=== PATIENT | female | born 1960 | race Two or more races ===

== ENCOUNTER 2024-06-06 10:34 | Outpatient (RCR) | payer BC, SELFPAY ==
--- NOTE | 2024-06-06 11:15 | CTCFLWUP_ITS ---
[facility] [address] [place], [place] [address] FOLLOW-UP NOTE Date: 06/06/2024 MR#: [id number] Name: DOLORES VANCE : 1960 Dx: C73 Malignant neoplasm of thyroid gland Identification. Patient with history of stage II [id number] papillary thyroid carcinoma. Status post total thyroidectomy and right modified radical neck dissection 1.2 cm primary 12 positive nodes [facility] Dr Lomeli 03/30/2023. Postop radioiodine and subsequent total body iodine no mets according to patient. Seeing security installation sales technician who is keeping her at euthyroid level. Synthroid 137 mcg according the patien t Ultrasound of neck 01/21/2024 showed no cystic or solid mass. Most recent labs 05/17/2024 shows calcium at normal level of 8.2 thyroglobulin antibody less than 0.9 .. Patient being followed by security installation sales technician who is keeping her at euthyroid level. Would like to see her in 6 months with thyroglobulin and thyroglobulin antibody. Electronically signed by: Mayur Dodson M.D. 06/06/2024 11:13 AM
== END 2024-06-23 23:59 | disposition home or self-care (01) ==
LOC: SCTC 10:34
PROVIDERS: PCP Internal Medicine; Referring Provider Internal Medicine; Visit Provider Radiology Therapeutic Radiology
DX: C73 Malignant neoplasm of thyroid gland (principal); E89.0 Postprocedural hypothyroidism; Z79.890 Hormone replacement therapy
CPT/HCPCS: 99213; G0463

== ENCOUNTER 2024-12-20 10:53 | Outpatient (RCR) | payer BC, SELFPAY ==
--- NOTE | 2024-12-20 12:21 | CTCFLWUP_ITS ---
[facility] [address] [place], [place] [address] FOLLOW-UP NOTE Date: 12/20/2024 MR#: [id number] Name: DOLORES VANCE : 1960 Dx: C73 Malignant neoplasm of thyroid gland Identification. Patient with history of stage II [id number] papillary thyroid carcinoma. Underwent total thyroidectomy right modified radical neck section 1.2 cm primary 12 positive node [facility] Dr Lomeli 03/30/2023. Postop radioiodine and subsequent told by the iodine scan no mets according to patient. Feeling well. No sign of recurrence in her neck. Seeing fall internship keeping her euthyroid level Synthroid 137 mcg according to patient. Ultrasound January 21, 2024 showed no cystic or solid mass. 12/17/2024 thyroglobulin 6.2 (1.3 -31.8) Repeat ultrasound before next visit and we will also check thyroglobulin thyroglobulin antibody. Electronically signed by: Mayur Dodson M.D. 12/20/2024 12:19 PM
== END 2024-12-22 23:59 | disposition home or self-care (01) ==
LOC: SCTC 10:53
PROVIDERS: PCP Internal Medicine; Referring Provider Family Medicine; Visit Provider Radiology Therapeutic Radiology
DX: C73 Malignant neoplasm of thyroid gland (principal); E89.0 Postprocedural hypothyroidism; Z92.3 Personal history of irradiation; Z79.890 Hormone replacement therapy
CPT/HCPCS: 99213; G0463

== ENCOUNTER → 2025-01-10 | Outpatient (CLI) | payer BC, SELFPAY ==
--- NOTE | 2025-01-10 13:30 | XR_ITS ---
Examination: Thyroid sonography complete TECHNIQUE: Grayscale sonographic images thyroid bed Date and time: January 10, 2025 1347 hours INDICATIONS: Diagnosis malignant neoplasm of thyroid gland, thyroidectomy 2 years ago, palpable mass in the right neck one week FINDINGS: Absent thyroid tissue Right neck lymph nodes 10 x 9 mm, 12 x 11 mm, 11 x 12 mm IMPRESSION: Right cervical lymphadenopathy as above, consider correlation with CT soft tissue neck post intravenous contrast follow-up
== END | disposition home or self-care (01) ==
PROVIDERS: PCP Internal Medicine; Referring Provider Radiology Therapeutic Radiology; Visit Provider Radiology Therapeutic Radiology
DX: R59.0 Localized enlarged lymph nodes (principal); C73 Malignant neoplasm of thyroid gland
CPT/HCPCS: 76536

== ENCOUNTER 2025-03-21 10:21 | Outpatient (RCR) | payer BC, SELFPAY ==
--- NOTE | 2025-03-21 11:35 | CTCFLWUP_ITS ---
[facility] [address] [place], [place] [address] FOLLOW-UP NOTE Date: 03/21/2025 MR#: [id number] Name: DOLORES VANCE : 1960 Dx: C73 Malignant neoplasm of thyroid gland Identification. Patient with history of stage II [id number] papillary thyroid carcinoma. Underwent total ectomy right modified radical neck dissection 1.2 cm primary 12 positive nodes [facility] Dr Lomeli 03/30/2023 Underwent postop radioiodine with subsequent told by iodine scan which showed no mets disease. Patient is kept Euthyroid with Synthroid 137 mcg by collector of aquarium specimens. Ultrasound 01/21/2024 revealed no cystic or solid mass. Repeat ultrasound 01/10/2025 revealed right cervical lymphadenopathy. Thyroglobulin also has been rising 7.1 March 08, 2025 up from 6.2 December 20, 2024 CT of the neck and see patient again in 2 months. Tried to call Dr. Lomeli today without success. Electronically signed by: Mayur Dodson M.D. 03/21/2025 11:33 AM
== END 2025-03-24 23:59 | disposition home or self-care (01) ==
LOC: SCTC 10:21
PROVIDERS: PCP Internal Medicine; Referring Provider Radiology Therapeutic Radiology; Visit Provider Radiology Therapeutic Radiology
DX: Z08 Encounter for follow-up examination after completed treatment for malignant neoplasm (principal); Z85.850 Personal history of malignant neoplasm of thyroid; E89.0 Postprocedural hypothyroidism; R59.0 Localized enlarged lymph nodes; Z92.3 Personal history of irradiation; Z79.890 Hormone replacement therapy
CPT/HCPCS: 99212; G0463

== ENCOUNTER → 2025-05-02 | Outpatient (CLI) | payer BC, SELFPAY ==
--- NOTE | 2025-05-02 09:11 | XR_ITS ---
Examination: CT soft tissue neck, with intravenous contrast. 2-D coronal reconstructions. 2-D sagittal reconstructions. Date and time of exam : May 02, 2025, 0941 hours INDICATIONS: Diagnosis malignant neoplasm of thyroid gland, ultrasound soft tissue thyroid 09/12/2024 right cervical lymphadenopathy. CTDI: vol (mGy): 13.8 DLP: (mGycm): 326 Technique: 1.25 mm axial sections of the neck of the obtained. Coronal and sagittal reconstructions have been obtained. Intravenous contrast administered 50 cc Isovue-370. Low dose protocols were performed. One or more of the following dose reduction techniques were used; automated exposure control, adjustment of the mA and/or KV according to patient size, use of iterative reconstruction technique. Findings: Mucosal disease in the right maxillary antrum Symmetrical nasopharynx oropharynx No pathologic carotid triangle or submental lymphadenopathy The larynx appears normal No soft tissue mass in the thyroid bed Lung apices are clear Moderate osteopenia IMPRESSION: No soft tissue mass in the thyroid bed No pathologic cervical lymphadenopathy Consider 6-month follow-up ultrasound soft tissue neck
== END | disposition home or self-care (01) ==
PROVIDERS: Referring Provider Radiology Therapeutic Radiology; Visit Provider Radiology Therapeutic Radiology
DX: C73 Malignant neoplasm of thyroid gland (principal)
CPT/HCPCS: 70491; A4649; Q9967

== ENCOUNTER 2025-05-23 09:34 | Outpatient (RCR) | payer BC, SELFPAY ==
--- NOTE | 2025-05-23 10:22 | CTCFLWUP_ITS ---
[facility] [address] [place], [place] [address] FOLLOW-UP NOTE Date: 05/23/2025 MR#: [id number] Name: MALICK VANCE : 1960 Dx: C73 Malignant neoplasm of thyroid gland Identification. Patient underwent total thyroidectomy and right modified neck dissection 1.2 cm primary with 12 positive nodes [facility] Dr Lomeli 03/30/2023. Stage II [id number] papillary thyroid carcinoma Underwent radioiodine with subsequent total body iodine scan which showed no mets disease. Being followed by level vial marker with Synthroid 137 mcg according to patient. 03/08/2025 thyroglobulin 7.1 thyroglobulin antibody less than 1.5 Ultrasound 01/21/2024 revealed no cystic or solid mass. CT scan of the neck 05/02/2025 unremarkable. No masses felt in the neck. Patient will get new labs done including thyroglobulin antibody and thyroglobulin. I will see her back in 4 months time with another ultrasound will be scheduled at that time. Electronically signed by: Mayur Dodson M.D. 05/23/2025 10:20 AM
== END 2025-05-24 23:59 | disposition home or self-care (01) ==
LOC: SCTC 09:34
PROVIDERS: PCP Internal Medicine; Referring Provider Internal Medicine Hematology & Oncology; Visit Provider Radiology Therapeutic Radiology
DX: C73 Malignant neoplasm of thyroid gland (principal); E89.0 Postprocedural hypothyroidism; Z92.3 Personal history of irradiation
CPT/HCPCS: 99213; G0463